=== PATIENT | female | born 1955 | race Caucasian/White ===

== ENCOUNTER 2016-06-05 16:51 | Emergency (ER) | payer MEDICAID ==
[~2016-06-05] VITALS: Ht 157.5 cm; Wt 68.4 kg
[~2016-06-05 16:51] MED LIST: ALBU8.5H5 INH; ASPI-650 PO; AZIT500T4 PO; BUDE10.2 INH; BUPR-173 PO; GUAI5SYR PO; LEVO750T26 PO; METR500T PO; MIRT15TA4 PO; NICO1PAT4 TD; OMEP-110 PO; PRED10TA14 PO; PRED1TAB PO; PRED20TA PO; PRED5TAB PO; TIOT18CA INH; VENL37.52 PO
[2016-06-05 17:19] LABS: HEMOGLOBIN 11.9 g/dL (11.7-16.4)
[2016-06-05] MEDS ORDERED: SODIUM CHLORIDE 0.9% 1,000ML IVBOLUS ONE (17:30)
[2016-06-05] MEDS ORDERED: PLEASE ENTER HEIGHT AND WEIGHT MC SCH (17:30)
[2016-06-05 17:38] LABS: ASPARTATE AMINO TRANSFERASE 32 U/L (15-37); BLOOD UREA NITROGEN 20 mg/dL (7-18)
[2016-06-05] MEDS ORDERED: ZIPRASIDONE 20 MG INJ IM ONE ×2 (17:39→18:00)
[2016-06-05 17:47] LABS: IS PT STATUS REG ER OR PRE ER? YES
[2016-06-05 18:22] LABS: DAU SCREEN DISCLAIMER
[2016-06-05 18:23] LABS: ACETAMINOPHEN < 2 mcg/mL (10-30)
[2016-06-06 03:14] VITALS: BP 104/58
== END 2016-06-06 03:35 | disposition home or self-care (01) ==
LOC: ED 17:02
DX: J44.1 Chronic obstructive pulmonary disease with (acute) exacerbation (principal); F15.129 Other stimulant abuse with intoxication, unspecified; F41.9 Anxiety disorder, unspecified; F31.9 Bipolar disorder, unspecified; Z99.81 Dependence on supplemental oxygen; Z87.891 Personal history of nicotine dependence; Z88.1 Allergy status to other antibiotic agents
CPT/HCPCS: 36415; 71010; 80053; 80307; 80329; 81001; 83880; 84484; 85025; 87077; 87086; 87186; 93005; 96360; 96372; 99285; J3486; J7030; G0480

== ENCOUNTER 2016-10-13 00:18 | Inpatient (IN) | payer MEDICAID ==
[~2016-10-13] VITALS: Ht 165.1 cm; Wt 72.0 kg
[~2016-10-13 00:18] MED LIST changes: -AZIT500T4 PO; +AZIT500T77 PO
[2016-10-13] MEDS ORDERED: methylPREDNISolone SOD SUCC 125 MG/2 ML ONE (00:24)
[2016-10-13] MEDS ORDERED: MAGNESIUM SULFATE PMX 2GM/50ML 50 ML IVPB ONE (00:30)
[2016-10-13] MEDS ORDERED: methylPREDNISolone SOD SUCC 125 MG/2 ML IVP ONE (00:30)
[2016-10-13] MEDS ORDERED: LORazepam 2 MG/ML, 1ML IVP ONE (00:30)
[2016-10-13] MEDS ORDERED: SODIUM CHLORIDE 0.9% 1,000ML IVBOLUS ONE ×3 (00:30→15:00)
[2016-10-13] MEDS ORDERED: SODIUM CHLORIDE FLUSH 10ML SYR IVF ONE (00:30)
[2016-10-13] MEDS ORDERED: ONDANSETRON 2MG/ML, 2ML IVP ONE (00:30)
[2016-10-13] MEDS ORDERED: IPRATROPIUM 0.5 MG/2.5 ML INHA NPPB SCH (00:30)
[2016-10-13] MEDS ORDERED: ALBUTEROL 0.5%, 20ML NPPB SCH (00:30)
[2016-10-13] MEDS ORDERED: ALBUTEROL/IPRATROPIUM 2.5MG/0.5MG, 3 ML ONE ×2 (00:33→06:42)
[2016-10-13 00:47] LABS: ABG COLLECTION SITE RIGHT RADIAL; COLLATERAL CIRCULATION TESTING NORMAL
[2016-10-13 00:50] LABS: HEMATOCRIT 41.9 % (34.6-47.8); HEMOGLOBIN 13.4 g/dL (11.7-16.4); WHITE BLOOD COUNT 6.8 x10^3/uL (3.4-10)
[2016-10-13 01:02] LABS: ASPARTATE AMINO TRANSFERASE 42 U/L (15-37); BLOOD UREA NITROGEN 16 mg/dL (7-18)
[2016-10-13 01:07] LABS: IS PT STATUS REG ER OR PRE ER? YES
[2016-10-13] MEDS ORDERED: FENTANYL PF 2,500 MCG in SODIUM CHLORIDE 0.9% 200 ML IV PRN ×2 (01:30→14:00)
[2016-10-13] MEDS ORDERED: PROPOFOL 100 ML IV PRN ×3 (01:30→17:00)
[2016-10-13] MEDS ORDERED: FENTANYL PF 250 MCG in DEXTROSE 5% 19.975 ML, HEPARIN 0.025 ML IV PRN (01:30)
[2016-10-13] MEDS ORDERED: LEVOFLOXACIN/PMX 750MG/150ML 150 ML IV ONE (01:30)
[2016-10-13 01:34] LABS: ABG COLLECTION SITE LEFT RADIAL; COLLATERAL CIRCULATION TESTING NORMAL
[2016-10-13] MEDS ORDERED: LEVOFLOXACIN/PMX 750MG/150ML 150 ML ONE (01:34)
[2016-10-13 03:17] LABS: ABG COLLECTION SITE RIGHT RADIAL; COLLATERAL CIRCULATION TESTING NORMAL
[2016-10-13] MEDS ORDERED: PROPOFOL 0 ML IV ONE (03:42)
[2016-10-13] MEDS ORDERED: PROPOFOL 10 MG/ML, 20ML ONE (03:42)
[2016-10-13] MEDS: NS + 20MEQ KCL 1,000 ML IV SCH ×2 (04:48→14:00)
[2016-10-13] MEDS ORDERED: ENOXAPARIN 40 MG/0.4 ML SQ SCH (05:00)
[2016-10-13] MEDS ORDERED: ACETAMINOPHEN 325 MG TABLET PO PRN ×2 (05:00→17:00)
[2016-10-13] MEDS ORDERED: ONDANSETRON 2MG/ML, 2ML IVPush PRN ×2 (05:00→17:00)
[2016-10-13] MEDS ORDERED: ENALAPRILAT 1.25 MG/ML, 2ML IVPush PRN (05:00)
[2016-10-13] MEDS: LEVOFLOXACIN/PMX 750MG/150ML 150 ML IV SCH (05:00)
[2016-10-13] MEDS ORDERED: methylPREDNISolone SOD SUCC 40 MG/ML IVPush SCH (05:00)
[2016-10-13] MEDS ORDERED: NS + 20MEQ KCL 1,000 ML IV ONE (05:22)
[2016-10-13] MEDS ORDERED: ENOXAPARIN 40 MG/0.4 ML ONE (05:32)
[2016-10-13] MEDS ORDERED: ASPIRIN 325 MG TABLET EC PO SCH (06:00)
[2016-10-13] MEDS: ALBUTEROL/IPRATROPIUM 2.5MG/0.5MG, 3 ML NPPB SCH ×2 (06:47→10:05)
[2016-10-13] MEDS ORDERED: methylPREDNISolone SOD SUCC 40 MG/ML ONE (07:35)
[2016-10-13] MEDS ORDERED: ETOMIDATE 20 MG/10 ML ONE (08:00)
[2016-10-13] MEDS ORDERED: MIDAZOLAM 1 MG/ML, 5ML ONE (08:00)
[2016-10-13] MEDS ORDERED: PROPOFOL 10 MG/ML, 100ML IV ONE (08:00)
[2016-10-13] MEDS ORDERED: SUCCINYLCHOLINE 20 MG/ML, 10ML ONE (08:00)
[2016-10-13] MEDS ORDERED: FAMOTIDINE 20 MG/2 ML IVPush SCH (09:00)
[2016-10-13] MEDS: BUPROPION SR 100 MG TABLET PO SCH (09:00)
[2016-10-13] MEDS: VENLAFAXINE XR 37.5MG CAP.ER.24H PO SCH (09:00)
[2016-10-13] MEDS ORDERED: FAMOTIDINE 20 MG/2 ML ONE (09:02)
[2016-10-13] MEDS ORDERED: PROPOFOL 100 ML IV ONE (09:52)
[2016-10-13] MEDS ORDERED: BISACODYL 10 MG SUPP PR PRN ×2 (11:00→17:00)
[2016-10-13] MEDS ORDERED: ALBUTEROL/IPRATROPIUM 2.5MG/0.5MG, 3 ML INLINE SCH (11:00)
[2016-10-13] MEDS ORDERED: PHARMACY MAY ADJ FOR RENAL FX MC SCH (11:00)
[2016-10-13] MEDS ORDERED: LIDOCAINE-MPF 1%, 2ML ENDO PRN ×2 (11:00→17:00)
[2016-10-13] MEDS ORDERED: SENNOSIDES 8.8 MG/5 ML ORAL SOL NG PRN (11:00)
[2016-10-13] MEDS ORDERED: SENNA/DOCUSATE TABLET NG PRN (11:00)
[2016-10-13] MEDS ORDERED: FENTANYL PF 100 MCG/2ML IVPush PRN ×2 (11:00→17:00)
[2016-10-13] MEDS ORDERED: LACTULOSE 20 GM/30 ML UDC NG PRN ×2 (11:00→17:00)
[2016-10-13 11:23] LABS: DAU SCREEN DISCLAIMER
[2016-10-13] MEDS: ENOXAPARIN 40 MG/0.4 ML SQ SCH (12:07)
[2016-10-13] MEDS: FAMOTIDINE 20 MG/2 ML IV SCH ×2 (12:07→22:11)
[2016-10-13 13:29] VITALS: BP 96/58
[2016-10-13] MEDS: methylPREDNISolone SOD SUCC 125 MG/2 ML IVPush SCH ×2 (17:07→22:11)
[2016-10-13] MEDS ORDERED: ENALAPRILAT 1.25 MG/ML, 2ML IV PRN (19:30)
[2016-10-13] MEDS ORDERED: hydrALAzine 20 MG/ML, 1ML IV PRN (19:30)
[2016-10-13] MEDS: LORazepam 2 MG/ML, 1ML IVPush PRN (19:50)
[2016-10-13] MEDS: MIRTAZAPINE 15 MG TABLET PO SCH (22:11)
[2016-10-14 04:28] LABS: ABG COLLECTION SITE LEFT BRACHIAL
[2016-10-14] MEDS ORDERED: ALBUTEROL/IPRATROPIUM 2.5MG/0.5MG, 3 ML ONE (04:41)
[2016-10-14 04:43] LABS: BLOOD UREA NITROGEN 10 mg/dL (7-18)
[2016-10-14 04:45] LABS: HEMATOCRIT 40.2 % (34.6-47.8)
[2016-10-14 04:47] LABS: ASPARTATE AMINO TRANSFERASE 26 U/L (15-37)
[2016-10-14] MEDS: methylPREDNISolone SOD SUCC 125 MG/2 ML IVPush SCH ×4 (05:00→23:40)
[2016-10-14] MEDS: LEVOFLOXACIN/PMX 750MG/150ML 150 ML IV SCH (05:06)
[2016-10-14] MEDS ORDERED: ALBUTEROL/IPRATROPIUM 2.5MG/0.5MG, 3 ML NPPB ONE (05:30)
[2016-10-14 05:32] VITALS: BP 152/82
[2016-10-14] MEDS ORDERED: ASPIRIN 81 MG TABLET EC PO SCH ×2 (06:00)
[2016-10-14 06:15] LABS: ABG COLLECTION SITE RIGHT RADIAL; COLLATERAL CIRCULATION TESTING NORMAL
[2016-10-14] MEDS: BUPROPION SR 100 MG TABLET PO SCH (08:21)
[2016-10-14] MEDS: VENLAFAXINE XR 37.5MG CAP.ER.24H PO SCH (08:21)
[2016-10-14] MEDS: MULTIVITAMIN 1 TABLET PO SCH (10:33)
[2016-10-14] MEDS: THIAMINE 100MG TABLET PO SCH (10:34)
[2016-10-14] MEDS: QUETIAPINE 25MG TABLET PO SCH ×2 (10:34→20:08)
[2016-10-14] MEDS: CEFTRIAXONE PMX 1GM/50ML 50 ML IV SCH (10:34)
[2016-10-14] MEDS: FOLIC ACID 1 MG TABLET PO SCH (10:34)
[2016-10-14] MEDS: FAMOTIDINE 20 MG/2 ML IV SCH ×2 (10:36→23:40)
[2016-10-14] MEDS: ENOXAPARIN 40 MG/0.4 ML SQ SCH (11:19)
[2016-10-14] MEDS ORDERED: ALBUTEROL/IPRATROPIUM 2.5MG/0.5MG, 3 ML NPPB PRN (11:30)
[2016-10-14] MEDS: ALBUTEROL/IPRATROPIUM 2.5MG/0.5MG, 3 ML NPPB SCH ×2 (13:40→20:00)
[2016-10-14] MEDS: MIRTAZAPINE 15 MG TABLET PO SCH (20:07)
[2016-10-15 04:10] VITALS: BP 156/84
[2016-10-15 04:19] LABS: HEMATOCRIT 40.1 % (34.6-47.8); HEMOGLOBIN 12.8 g/dL (11.7-16.4); WHITE BLOOD COUNT 18.5 x10^3/uL (3.4-10)
[2016-10-15 04:31] LABS: BLOOD UREA NITROGEN 18 mg/dL (7-18)
[2016-10-15 04:59] LABS: ABG COLLECTION SITE LEFT RADIAL; COLLATERAL CIRCULATION TESTING NORMAL
[2016-10-15] MEDS: methylPREDNISolone SOD SUCC 125 MG/2 ML IVPush SCH ×3 (05:22→17:55)
[2016-10-15] MEDS: ASPIRIN 81 MG TABLET EC PO SCH (05:23)
[2016-10-15] MEDS: ALBUTEROL/IPRATROPIUM 2.5MG/0.5MG, 3 ML NPPB SCH ×4 (06:55→20:11)
[2016-10-15] MEDS: VENLAFAXINE XR 37.5MG CAP.ER.24H PO SCH (08:03)
[2016-10-15] MEDS: BUPROPION SR 100 MG TABLET PO SCH (08:03)
[2016-10-15] MEDS: MULTIVITAMIN 1 TABLET PO SCH (08:04)
[2016-10-15] MEDS: QUETIAPINE 25MG TABLET PO SCH ×2 (08:04→21:50)
[2016-10-15] MEDS: THIAMINE 100MG TABLET PO SCH (08:04)
[2016-10-15] MEDS: FOLIC ACID 1 MG TABLET PO SCH (08:05)
[2016-10-15 10:09] VITALS: BP 124/66
[2016-10-15] MEDS: CEFTRIAXONE PMX 1GM/50ML 50 ML IV SCH (10:21)
[2016-10-15] MEDS ORDERED: ALBUTEROL/IPRATROPIUM 2.5MG/0.5MG, 3 ML ONE ×2 (10:22→13:45)
[2016-10-15] MEDS: ENOXAPARIN 40 MG/0.4 ML SQ SCH (11:44)
[2016-10-15] MEDS: FAMOTIDINE 20 MG/2 ML IV SCH (11:44)
[2016-10-15 15:15] VITALS: BP 129/74
[2016-10-15 19:00] VITALS: BP 152/76
[2016-10-15] MEDS: LORazepam 2 MG/ML, 1ML IVPush PRN (19:31)
[2016-10-15] MEDS: MIRTAZAPINE 15 MG TABLET PO SCH (21:50)
[2016-10-16] MEDS: FAMOTIDINE 20 MG/2 ML IV SCH ×2 (00:12→11:59)
[2016-10-16] MEDS: methylPREDNISolone SOD SUCC 125 MG/2 ML IVPush SCH ×4 (00:12→18:37)
[2016-10-16 02:20] VITALS: BP 150/90
[2016-10-16 05:53] LABS: ABG COLLECTION SITE LEFT BRACHIAL
[2016-10-16 05:55] LABS: HEMATOCRIT 39.8 % (34.6-47.8); WHITE BLOOD COUNT 13.6 x10^3/uL (3.4-10)
[2016-10-16 06:05] LABS: BLOOD UREA NITROGEN 19 mg/dL (7-18)
[2016-10-16] MEDS: ASPIRIN 81 MG TABLET EC PO SCH (06:24)
[2016-10-16] MEDS ORDERED: ALBUTEROL/IPRATROPIUM 2.5MG/0.5MG, 3 ML ONE ×2 (06:36→10:28)
[2016-10-16 07:10] VITALS: BP 155/88
[2016-10-16] MEDS: ALBUTEROL/IPRATROPIUM 2.5MG/0.5MG, 3 ML NPPB SCH ×4 (07:32→20:00)
[2016-10-16] MEDS: BUPROPION SR 100 MG TABLET PO SCH (10:17)
[2016-10-16] MEDS: VENLAFAXINE XR 37.5MG CAP.ER.24H PO SCH (10:17)
[2016-10-16] MEDS: FOLIC ACID 1 MG TABLET PO SCH (10:17)
[2016-10-16] MEDS: THIAMINE 100MG TABLET PO SCH (10:17)
[2016-10-16] MEDS: MULTIVITAMIN 1 TABLET PO SCH (10:17)
[2016-10-16] MEDS: QUETIAPINE 25MG TABLET PO SCH ×2 (10:17→22:16)
[2016-10-16] MEDS: CEFTRIAXONE PMX 1GM/50ML 50 ML IV SCH (10:18)
[2016-10-16] MEDS ORDERED: POTASSIUM PHOS 4.4 MEQ/ML IV ONE (11:00)
[2016-10-16] MEDS ORDERED: POTASSIUM PHOSPHATE 22 MEQ in SODIUM CHLORIDE 0.9% 250 ML IV ONE (11:30)
[2016-10-16] MEDS: LORazepam 2 MG/ML, 1ML IVPush PRN ×2 (11:57→19:27)
[2016-10-16] MEDS: ENOXAPARIN 40 MG/0.4 ML SQ SCH (13:11)
[2016-10-16 19:41] VITALS: BP 154/84
[2016-10-16] MEDS ORDERED: LORazepam 2 MG/ML, 1ML IVPush ONE (20:30)
[2016-10-16] MEDS: MIRTAZAPINE 15 MG TABLET PO SCH (22:16)
[2016-10-16] MEDS: FAMOTIDINE 20 MG TABLET PO SCH (22:44)
[2016-10-17] MEDS: methylPREDNISolone SOD SUCC 125 MG/2 ML IVPush SCH ×3 (00:37→13:02)
[2016-10-17 02:00] VITALS: BP 154/79
[2016-10-17] MEDS: ASPIRIN 81 MG TABLET EC PO SCH (06:18)
[2016-10-17 07:29] VITALS: BP 130/68
[2016-10-17 07:42] LABS: HEMATOCRIT 40.4 % (34.6-47.8); WHITE BLOOD COUNT 15.3 x10^3/uL (3.4-10)
[2016-10-17 07:45] LABS: ABG COLLECTION SITE LEFT BRACHIAL; COLLATERAL CIRCULATION TESTING NORMAL
[2016-10-17 07:53] LABS: BLOOD UREA NITROGEN 24 mg/dL (7-18)
[2016-10-17] MEDS: THIAMINE 100MG TABLET PO SCH (08:04)
[2016-10-17] MEDS: FAMOTIDINE 20 MG TABLET PO SCH (08:04)
[2016-10-17] MEDS: QUETIAPINE 25MG TABLET PO SCH (08:04)
[2016-10-17] MEDS: MULTIVITAMIN 1 TABLET PO SCH (08:04)
[2016-10-17] MEDS: VENLAFAXINE XR 37.5MG CAP.ER.24H PO SCH (08:05)
[2016-10-17] MEDS: FOLIC ACID 1 MG TABLET PO SCH (08:05)
[2016-10-17] MEDS: BUPROPION SR 100 MG TABLET PO SCH (08:05)
[2016-10-17] MEDS: ALBUTEROL/IPRATROPIUM 2.5MG/0.5MG, 3 ML NPPB SCH ×3 (08:20→15:05)
[2016-10-17] MEDS: CEFTRIAXONE PMX 1GM/50ML 50 ML IV SCH (10:36)
[2016-10-17] MEDS ORDERED: PRED5TAB PO (11:21)
[2016-10-17] MEDS ORDERED: AMOX1TAB64 PO (11:21)
[2016-10-17] MEDS: LORazepam 2 MG/ML, 1ML IVPush PRN ×2 (12:43→17:36)
[2016-10-17] MEDS: ENOXAPARIN 40 MG/0.4 ML SQ SCH (13:02)
[2016-10-17 13:40] VITALS: BP 134/73
== END 2016-10-17 18:39 | disposition home or self-care (01) | DRG 208 ==
LOC: ED 02:40 → EDIP 03:11 → CCU 10:12 → 4WST 10-15 09:54
PROVIDERS: ADMIT Internal Medicine; ATTEND Family Medicine
PROC: 0BH17EZ Insertion of Endotracheal Airway into Trachea, Via Natural or Artificial Opening (ICD-10-PCS; principal; 2016-10-13)
PROC: 5A1935Z Respiratory Ventilation, Less than 24 Consecutive Hours (ICD-10-PCS; 2016-10-13)
DX: J96.21 Acute and chronic respiratory failure with hypoxia (principal); G93.40 Encephalopathy, unspecified; Z99.11 Dependence on respirator [ventilator] status; E44.0 Moderate protein-calorie malnutrition; J44.1 Chronic obstructive pulmonary disease with (acute) exacerbation; E44.1 Mild protein-calorie malnutrition; F17.200 Nicotine dependence, unspecified, uncomplicated; F11.10 Opioid abuse, uncomplicated; I48.91 Unspecified atrial fibrillation; F31.9 Bipolar disorder, unspecified; F15.10 Other stimulant abuse, uncomplicated; F10.10 Alcohol abuse, uncomplicated; F41.9 Anxiety disorder, unspecified; D72.829 Elevated white blood cell count, unspecified; M19.90 Unspecified osteoarthritis, unspecified site; T38.0X5A Adverse effect of glucocorticoids and synthetic analogues, initial encounter; J96.22 Acute and chronic respiratory failure with hypercapnia; Z86.72 Personal history of thrombophlebitis; Z91.14 Patient's other noncompliance with medication regimen; Z91.19 Patient's noncompliance with other medical treatment and regimen; Z99.81 Dependence on supplemental oxygen; Z59.0 Homelessness; Y92.89 Other specified places as the place of occurrence of the external cause; Z68.26 Body mass index [BMI] 26.0-26.9, adult; Z88.1 Allergy status to other antibiotic agents; Z88.8 Allergy status to other drugs, medicaments and biological substances
CPT/HCPCS: 31500; 36415; 36600; 71010; 80048; 80053; 80307; 82803; 83735; 83880; 84100; 84478; 84484; 85025; 87040; 87081; 93005; 94002; 94150; 94640; 94660; 96365; 96368; 96372; 96375; J0696; J1650; J1956; J2250; J2704; J3010; J3480; J7620; J7644; J0330; J2060; J2920; J2930; J3475; J7030; J7050; S0028

== ENCOUNTER 2016-12-20 04:37 | Inpatient (IN) | payer MEDICAID ==
[~2016-12-20] VITALS: Ht 165.1 cm; Wt 79.7 kg
[~2016-12-20 04:37] MED LIST changes: +AMOX1TAB64 PO; +AZIT500T5 PO; -AZIT500T77 PO; +NICO-486 TD; -NICO1PAT4 TD
[2016-12-20] MEDS ORDERED: ALBUTEROL/IPRATROPIUM 2.5MG/0.5MG, 3 ML ONE (04:43)
[2016-12-20] MEDS ORDERED: methylPREDNISolone SOD SUCC 125 MG/2 ML IVP ONE (05:00)
[2016-12-20] MEDS ORDERED: SODIUM CHLORIDE FLUSH 10ML SYR IVF ONE (05:00)
[2016-12-20] MEDS ORDERED: ALBUTEROL/IPRATROPIUM 2.5MG/0.5MG, 3 ML NPPB ONE (05:00)
[2016-12-20] MEDS ORDERED: methylPREDNISolone SOD SUCC 125 MG/2 ML ONE (05:08)
[2016-12-20] MEDS ORDERED: CEFTRIAXONE PMX 1GM/50ML 50 ML ONE (05:13)
[2016-12-20] MEDS: CEFTRIAXONE PMX 1GM/50ML 50 ML IVPB ONE ×2 (05:16→06:02)
[2016-12-20 05:17] LABS: HEMOGLOBIN 12.6 g/dL (11.7-16.4); WHITE BLOOD COUNT 16.4 x10^3/uL (3.4-10)
[2016-12-20 05:28] LABS: BLOOD UREA NITROGEN 20 mg/dL (7-18)
[2016-12-20] MEDS ORDERED: SODIUM CHLORIDE 0.9% 1,000ML IVBOLUS ONE (05:30)
[2016-12-20] MEDS ORDERED: ALPR0.25 PO (06:04)
[2016-12-20] MEDS ORDERED: LORA0.5T PO (06:04)
[2016-12-20] MEDS ORDERED: SODIUM CHLORIDE 0.9% 1,000 ML IV ONE (06:35)
[2016-12-20] MEDS ORDERED: LORazepam 1MG TABLET ONE (06:41)
[2016-12-20] MEDS ORDERED: LORazepam 2 MG/ML, 1ML ONE (06:45)
[2016-12-20 06:50] LABS: ABG COLLECTION SITE RIGHT RADIAL
[2016-12-20 06:51] LABS: COLLATERAL CIRCULATION TESTING NORMAL
[2016-12-20] MEDS ORDERED: LORazepam 2 MG/ML, 1ML IVPush ONE (07:00)
[2016-12-20] MEDS ORDERED: ONDANSETRON 2MG/ML, 2ML IVPush PRN ×2 (07:00→08:00)
[2016-12-20 07:03] LABS: IS PT STATUS REG ER OR PRE ER? YES
[2016-12-20] MEDS ORDERED: SODIUM CHLORIDE 0.9% 1,000 ML IV SCH (07:57)
[2016-12-20] MEDS ORDERED: CEFTRIAXONE 1,000 MG in SODIUM CHLORIDE 0.9% 50 ML IV SCH (08:00)
[2016-12-20] MEDS ORDERED: ACETAMINOPHEN 325 MG TABLET PO PRN (08:00)
[2016-12-20] MEDS ORDERED: GUAIFENESIN/DM 200-20MG, 10ML UDC PO PRN (08:00)
[2016-12-20] MEDS ORDERED: POLYETHYLENE GLYCOL 17 GM PACKET PO PRN (08:00)
[2016-12-20] MEDS ORDERED: morphine SULFATE 10 MG/ML, 1ML IVPush PRN (08:00)
[2016-12-20] MEDS: methylPREDNISolone SOD SUCC 125 MG/2 ML IVPush SCH ×3 (08:00→23:57)
[2016-12-20] MEDS ORDERED: LORazepam 0.5MG TABLET PO SCH ×2 (08:00→15:30)
[2016-12-20] MEDS ORDERED: NICOTINE 14MG/24 HR PATCH.TD24 ONE (08:29)
[2016-12-20] MEDS ORDERED: ENOXAPARIN 40 MG/0.4 ML ONE (08:30)
[2016-12-20] MEDS: NICOTINE 14MG/24 HR PATCH.TD24 TD SCH (08:34)
[2016-12-20] MEDS: ENOXAPARIN 40 MG/0.4 ML SQ SCH (08:34)
[2016-12-20] MEDS: TIOTROPIUM BROMIDE INH SCH (09:00)
[2016-12-20] MEDS ORDERED: ALBUTEROL/IPRATROPIUM 2.5MG/0.5MG, 3 ML NPPB PRN (09:00)
[2016-12-20] MEDS ORDERED: DOCUSATE 100 MG CAPSULE PO PRN (09:00)
[2016-12-20] MEDS: ALBUTEROL/IPRATROPIUM 2.5MG/0.5MG, 3 ML NPPB SCH ×3 (09:18→20:21)
[2016-12-20 10:14] VITALS: BP 143/90
[2016-12-20] MEDS: FORMOTEROL INH SCH (10:17)
[2016-12-20] MEDS: BUDESONIDE INH SCH (10:17)
[2016-12-20] MEDS: LORAZEPAM MC SCH ×2 (10:18→15:08)
[2016-12-20] MEDS: AZITHROMYCIN 500 MG in SODIUM CHLORIDE 0.9% 250 ML IV SCH (10:34)
[2016-12-20 13:45] VITALS: BP 118/64
[2016-12-20] MEDS: BUPROPION SR 100 MG TABLET PO SCH (14:42)
[2016-12-20] MEDS: VENLAFAXINE XR 37.5MG CAP.ER.24H PO SCH (14:42)
[2016-12-20] MEDS ORDERED: LORAZEPAM MC SCH (15:30)
[2016-12-20 18:56] VITALS: BP 122/57
[2016-12-20] MEDS: MIRTAZAPINE 15 MG TABLET PO SCH (19:51)
[2016-12-20] MEDS: SENNA/DOCUSATE TABLET PO SCH (19:52)
[2016-12-20] MEDS: LORazepam 0.5MG TABLET PO PRN (20:42)
[2016-12-20] MEDS ORDERED: LORazepam 0.5MG TABLET PO PRN (21:30)
[2016-12-21 01:08] VITALS: BP 128/69
[2016-12-21] MEDS: ALBUTEROL/IPRATROPIUM 2.5MG/0.5MG, 3 ML NPPB SCH ×4 (03:00→21:00)
[2016-12-21] MEDS: LORazepam 0.5MG TABLET PO PRN ×4 (03:01→21:08)
[2016-12-21] MEDS ORDERED: CEFTRIAXONE 1,000 MG in SODIUM CHLORIDE 0.9% 50 ML IV SCH (06:00)
[2016-12-21] MEDS: CEFTRIAXONE PMX 1GM/50ML 50 ML IV SCH (06:03)
[2016-12-21 06:07] LABS: HEMATOCRIT 36.2 % (34.6-47.8); HEMOGLOBIN 11.5 g/dL (11.7-16.4); WHITE BLOOD COUNT 20.5 x10^3/uL (3.4-10)
[2016-12-21 06:15] LABS: BLOOD UREA NITROGEN 19 mg/dL (7-18)
[2016-12-21 07:05] VITALS: BP 149/74
[2016-12-21] MEDS: ASPIRIN 81 MG TABLET EC PO SCH (08:00)
[2016-12-21] MEDS: TIOTROPIUM BROMIDE INH SCH (09:00)
[2016-12-21] MEDS: VENLAFAXINE XR 37.5MG CAP.ER.24H PO SCH (09:00)
[2016-12-21] MEDS: FORMOTEROL INH SCH (09:00)
[2016-12-21] MEDS: BUDESONIDE INH SCH (09:00)
[2016-12-21] MEDS: NICOTINE 14MG/24 HR PATCH.TD24 TD SCH (09:44)
[2016-12-21] MEDS: methylPREDNISolone SOD SUCC 125 MG/2 ML IVPush SCH ×2 (09:44→15:14)
[2016-12-21] MEDS: ENOXAPARIN 40 MG/0.4 ML SQ SCH (09:44)
[2016-12-21] MEDS: BUPROPION SR 100 MG TABLET PO SCH (09:44)
[2016-12-21] MEDS: SENNA/DOCUSATE TABLET PO SCH (09:45)
[2016-12-21] MEDS: AZITHROMYCIN 500 MG in SODIUM CHLORIDE 0.9% 250 ML IV SCH (09:45)
[2016-12-21 12:58] VITALS: BP 119/70
[2016-12-21 14:00] LABS: DAU SCREEN DISCLAIMER
[2016-12-21 21:05] VITALS: BP 133/75
[2016-12-21] MEDS: MIRTAZAPINE 15 MG TABLET PO SCH (21:08)
[2016-12-22 01:20] VITALS: BP 131/68
[2016-12-22] MEDS: HYDROcodone/APAP 5/325 TABLET PO PRN ×2 (01:21→19:47)
[2016-12-22] MEDS: methylPREDNISolone SOD SUCC 125 MG/2 ML IVPush SCH ×3 (01:21→16:45)
[2016-12-22] MEDS: LORazepam 0.5MG TABLET PO PRN ×2 (02:45→09:06)
[2016-12-22] MEDS: ALBUTEROL/IPRATROPIUM 2.5MG/0.5MG, 3 ML NPPB SCH ×4 (03:16→20:19)
[2016-12-22] MEDS: CEFTRIAXONE PMX 1GM/50ML 50 ML IV SCH (06:22)
[2016-12-22 08:29] VITALS: BP 133/60
[2016-12-22] MEDS: VENLAFAXINE XR 37.5MG CAP.ER.24H PO SCH (09:00)
[2016-12-22] MEDS: TIOTROPIUM BROMIDE INH SCH (09:00)
[2016-12-22] MEDS: FORMOTEROL INH SCH (09:00)
[2016-12-22] MEDS: BUDESONIDE INH SCH (09:00)
[2016-12-22] MEDS: AZITHROMYCIN 500 MG in SODIUM CHLORIDE 0.9% 250 ML IV SCH (09:05)
[2016-12-22] MEDS: ASPIRIN 81 MG TABLET EC PO SCH (09:06)
[2016-12-22] MEDS: SENNA/DOCUSATE TABLET PO SCH (09:06)
[2016-12-22] MEDS: ENOXAPARIN 40 MG/0.4 ML SQ SCH (09:06)
[2016-12-22] MEDS: NICOTINE 14MG/24 HR PATCH.TD24 TD SCH (09:06)
[2016-12-22] MEDS: BUPROPION SR 100 MG TABLET PO SCH (09:06)
[2016-12-22] MEDS ORDERED: FUROSEMIDE 20 MG/2 ML IV ONE (09:30)
[2016-12-22 15:44] VITALS: BP 149/81
[2016-12-22] MEDS ORDERED: DOCUSATE 100 MG CAPSULE PO PRN (20:30)
[2016-12-22] MEDS ORDERED: ACETAMINOPHEN 325 MG TABLET PO PRN (20:30)
[2016-12-22] MEDS ORDERED: ONDANSETRON 2MG/ML, 2ML IVPush PRN (20:30)
[2016-12-22] MEDS ORDERED: POLYETHYLENE GLYCOL 17 GM PACKET PO PRN (20:30)
[2016-12-22] MEDS: MIRTAZAPINE 15 MG TABLET PO SCH (21:00)
[2016-12-22 21:12] VITALS: BP 134/74
[2016-12-23] MEDS: methylPREDNISolone SOD SUCC 125 MG/2 ML IVPush SCH ×4 (01:33→21:50)
[2016-12-23 01:44] VITALS: BP 165/90
[2016-12-23 02:30] VITALS: BP 130/67
[2016-12-23] MEDS: ALBUTEROL/IPRATROPIUM 2.5MG/0.5MG, 3 ML NPPB SCH ×4 (02:43→19:17)
[2016-12-23] MEDS: CEFTRIAXONE PMX 1GM/50ML 50 ML IV SCH (05:12)
[2016-12-23] MEDS: HYDROcodone/APAP 5/325 TABLET PO PRN ×2 (06:01→11:02)
[2016-12-23] MEDS ORDERED: ALBUTEROL/IPRATROPIUM 2.5MG/0.5MG, 3 ML NPPB SCH (07:00)
[2016-12-23 08:46] VITALS: BP 148/70
[2016-12-23] MEDS: ASPIRIN 81 MG TABLET EC PO SCH (08:48)
[2016-12-23] MEDS: VENLAFAXINE XR 37.5MG CAP.ER.24H PO SCH (08:49)
[2016-12-23] MEDS: BUDESONIDE INH SCH (08:49)
[2016-12-23] MEDS: NICOTINE 14MG/24 HR PATCH.TD24 TD SCH (08:49)
[2016-12-23] MEDS: FORMOTEROL INH SCH (08:49)
[2016-12-23] MEDS: ENOXAPARIN 40 MG/0.4 ML SQ SCH (08:49)
[2016-12-23] MEDS: BUPROPION SR 100 MG TABLET PO SCH (08:49)
[2016-12-23] MEDS: TIOTROPIUM BROMIDE INH SCH (08:49)
[2016-12-23] MEDS: SENNA/DOCUSATE TABLET PO SCH (08:50)
[2016-12-23] MEDS: AZITHROMYCIN 500 MG in SODIUM CHLORIDE 0.9% 250 ML IV SCH (10:37)
[2016-12-23] MEDS ORDERED: FUROSEMIDE 20 MG/2 ML IV ONE (11:00)
[2016-12-23] MEDS: FLUTICASONE/VILANTEROL 200-25MCG/INH INH SCH (11:49)
[2016-12-23 16:00] VITALS: BP_SYST 154; BP_SYST 166; BP_DIAS 73; BP_DIAS 83
[2016-12-23 18:30] VITALS: BP 151/72
[2016-12-23] MEDS: MIRTAZAPINE 15 MG TABLET PO SCH (21:49)
[2016-12-24 03:14] VITALS: BP 152/75
[2016-12-24] MEDS: methylPREDNISolone SOD SUCC 125 MG/2 ML IVPush SCH ×4 (03:24→20:15)
[2016-12-24] MEDS: CEFTRIAXONE PMX 1GM/50ML 50 ML IV SCH (05:11)
[2016-12-24] MEDS: ASPIRIN 81 MG TABLET EC PO SCH (05:12)
[2016-12-24 05:46] LABS: HEMATOCRIT 37.9 % (34.6-47.8); HEMOGLOBIN 12.4 g/dL (11.7-16.4); WHITE BLOOD COUNT 17.2 x10^3/uL (3.4-10)
[2016-12-24 05:59] LABS: BLOOD UREA NITROGEN 21 mg/dL (7-18)
[2016-12-24] MEDS: FLUTICASONE/VILANTEROL 200-25MCG/INH INH SCH (08:51)
[2016-12-24] MEDS: NICOTINE 14MG/24 HR PATCH.TD24 TD SCH (08:52)
[2016-12-24] MEDS: ENOXAPARIN 40 MG/0.4 ML SQ SCH (08:52)
[2016-12-24] MEDS: VENLAFAXINE XR 37.5MG CAP.ER.24H PO SCH (08:52)
[2016-12-24] MEDS: BUPROPION SR 100 MG TABLET PO SCH (08:52)
[2016-12-24] MEDS: SENNA/DOCUSATE TABLET PO SCH (08:53)
[2016-12-24 08:54] VITALS: BP 152/71
[2016-12-24] MEDS: ALBUTEROL/IPRATROPIUM 2.5MG/0.5MG, 3 ML NPPB SCH ×4 (09:00→20:25)
[2016-12-24] MEDS: AZITHROMYCIN 500 MG in SODIUM CHLORIDE 0.9% 250 ML IV SCH (10:14)
[2016-12-24] MEDS: HYDROcodone/APAP 5/325 TABLET PO PRN ×3 (10:35→19:36)
[2016-12-24 17:18] VITALS: BP 148/70
[2016-12-24] MEDS: PROPRANOLOL 10 MG TABLET PO SCH (17:24)
[2016-12-24] MEDS: MIRTAZAPINE 15 MG TABLET PO SCH (20:05)
[2016-12-24 20:30] VITALS: BP 167/90
[2016-12-25 02:59] VITALS: BP 149/66
[2016-12-25] MEDS: methylPREDNISolone SOD SUCC 125 MG/2 ML IVPush SCH ×4 (03:04→20:08)
[2016-12-25] MEDS: CEFTRIAXONE PMX 1GM/50ML 50 ML IV SCH (06:01)
[2016-12-25] MEDS: ASPIRIN 81 MG TABLET EC PO SCH (06:05)
[2016-12-25] MEDS: PROPRANOLOL 10 MG TABLET PO SCH ×2 (06:05→17:29)
[2016-12-25] MEDS: ALBUTEROL/IPRATROPIUM 2.5MG/0.5MG, 3 ML NPPB SCH ×4 (08:00→19:56)
[2016-12-25 08:26] VITALS: BP 149/80
[2016-12-25] MEDS: SENNA/DOCUSATE TABLET PO SCH (09:00)
[2016-12-25] MEDS: VENLAFAXINE XR 37.5MG CAP.ER.24H PO SCH (09:15)
[2016-12-25] MEDS: ENOXAPARIN 40 MG/0.4 ML SQ SCH (09:15)
[2016-12-25] MEDS: AZITHROMYCIN 500 MG in SODIUM CHLORIDE 0.9% 250 ML IV SCH (09:16)
[2016-12-25] MEDS: FLUTICASONE/VILANTEROL 200-25MCG/INH INH SCH (09:16)
[2016-12-25] MEDS: BUPROPION SR 100 MG TABLET PO SCH (09:16)
[2016-12-25 11:07] VITALS: BP 138/74
[2016-12-25] MEDS: HYDROcodone/APAP 5/325 TABLET PO PRN (13:48)
[2016-12-25 14:22] VITALS: BP 146/74
[2016-12-25 20:00] VITALS: BP 136/62
[2016-12-25] MEDS: MIRTAZAPINE 15 MG TABLET PO SCH (20:08)
[2016-12-26 02:00] VITALS: BP 158/74
[2016-12-26] MEDS: methylPREDNISolone SOD SUCC 125 MG/2 ML IVPush SCH ×4 (03:13→20:28)
[2016-12-26] MEDS: PROPRANOLOL 10 MG TABLET PO SCH (06:00)
[2016-12-26] MEDS: CEFTRIAXONE PMX 1GM/50ML 50 ML IV SCH (06:09)
[2016-12-26] MEDS: ASPIRIN 81 MG TABLET EC PO SCH (06:09)
[2016-12-26 07:27] VITALS: BP 166/83
[2016-12-26] MEDS: ALBUTEROL/IPRATROPIUM 2.5MG/0.5MG, 3 ML NPPB SCH ×4 (08:05→20:11)
[2016-12-26] MEDS ORDERED: DILTIAZEM 120 MG CAP.ER.24H PO SCH (09:00)
[2016-12-26] MEDS: SENNA/DOCUSATE TABLET PO SCH (09:00)
[2016-12-26] MEDS: FLUTICASONE/VILANTEROL 200-25MCG/INH INH SCH (09:24)
[2016-12-26] MEDS: VENLAFAXINE XR 37.5MG CAP.ER.24H PO SCH (09:25)
[2016-12-26] MEDS: BUPROPION SR 100 MG TABLET PO SCH (09:25)
[2016-12-26] MEDS: ENOXAPARIN 40 MG/0.4 ML SQ SCH (09:25)
[2016-12-26] MEDS: AZITHROMYCIN 500 MG in SODIUM CHLORIDE 0.9% 250 ML IV SCH (10:22)
[2016-12-26 13:12] VITALS: BP 148/63
[2016-12-26 19:11] VITALS: BP 153/75
[2016-12-26] MEDS: MIRTAZAPINE 15 MG TABLET PO SCH (20:28)
[2016-12-27 01:42] VITALS: BP 144/72
[2016-12-27] MEDS: methylPREDNISolone SOD SUCC 125 MG/2 ML IVPush SCH ×3 (03:04→15:00)
[2016-12-27] MEDS: ASPIRIN 81 MG TABLET EC PO SCH (05:41)
[2016-12-27] MEDS: CEFTRIAXONE PMX 1GM/50ML 50 ML IV SCH (05:42)
[2016-12-27] MEDS: ALBUTEROL/IPRATROPIUM 2.5MG/0.5MG, 3 ML NPPB SCH ×3 (06:00→14:53)
[2016-12-27 06:03] LABS: HEMATOCRIT 39.4 % (34.6-47.8); HEMOGLOBIN 12.6 g/dL (11.7-16.4); WHITE BLOOD COUNT 16.3 x10^3/uL (3.4-10)
[2016-12-27 06:10] LABS: BLOOD UREA NITROGEN 28 mg/dL (7-18)
[2016-12-27] MEDS: ENOXAPARIN 40 MG/0.4 ML SQ SCH (08:00)
[2016-12-27 08:15] VITALS: BP 158/73
[2016-12-27] MEDS: FLUTICASONE/VILANTEROL 200-25MCG/INH INH SCH (08:17)
[2016-12-27] MEDS: BUPROPION SR 100 MG TABLET PO SCH (08:19)
[2016-12-27] MEDS: SENNA/DOCUSATE TABLET PO SCH (08:19)
[2016-12-27] MEDS: VENLAFAXINE XR 37.5MG CAP.ER.24H PO SCH (08:21)
[2016-12-27] MEDS ORDERED: LOSARTAN 25MG TABLET PO SCH (09:00)
[2016-12-27] MEDS ORDERED: DILTIAZEM CD 180 MG CAP.ER.24H PO SCH (09:00)
[2016-12-27] MEDS: AZITHROMYCIN 500 MG in SODIUM CHLORIDE 0.9% 250 ML IV SCH (09:44)
[2016-12-27] MEDS ORDERED: DILT180C53 PO (14:45)
[2016-12-27] MEDS ORDERED: LOSA25TA2 PO (14:45)
[2016-12-27] MEDS ORDERED: PRED5TAB PO (14:45)
[2016-12-27] MEDS ORDERED: ERGO500017 PO (14:56)
== END 2016-12-27 16:54 | disposition hospice, home (50) | DRG 871 ==
LOC: ED 05:34 → EDIP 06:35 → 5SO 09:06 → 4EST 12-25 10:53
PROVIDERS: ADMIT Family Medicine; ATTEND Family Medicine
DX: A41.9 Sepsis, unspecified organism (principal); G93.41 Metabolic encephalopathy; J96.21 Acute and chronic respiratory failure with hypoxia; E44.0 Moderate protein-calorie malnutrition; I50.32 Chronic diastolic (congestive) heart failure; I11.0 Hypertensive heart disease with heart failure; I48.91 Unspecified atrial fibrillation; J44.0 Chronic obstructive pulmonary disease with (acute) lower respiratory infection; J44.1 Chronic obstructive pulmonary disease with (acute) exacerbation; J98.11 Atelectasis; Z99.81 Dependence on supplemental oxygen; E55.9 Vitamin D deficiency, unspecified; F15.10 Other stimulant abuse, uncomplicated; M19.90 Unspecified osteoarthritis, unspecified site; E87.6 Hypokalemia; F17.200 Nicotine dependence, unspecified, uncomplicated; F31.9 Bipolar disorder, unspecified; F41.9 Anxiety disorder, unspecified; R65.20 Severe sepsis without septic shock; Z51.5 Encounter for palliative care; Z59.0 Homelessness; Z88.1 Allergy status to other antibiotic agents; Z91.14 Patient's other noncompliance with medication regimen; Z87.01 Personal history of pneumonia (recurrent); Z98.51 Tubal ligation status; Z88.8 Allergy status to other drugs, medicaments and biological substances; Z79.82 Long term (current) use of aspirin; Z79.899 Other long term (current) drug therapy; Z68.29 Body mass index [BMI] 29.0-29.9, adult; Z71.6 Tobacco abuse counseling
CPT/HCPCS: 36415; 36600; 71010; 71020; 80048; 80307; 82040; 82306; 82607; 82803; 83605; 83735; 83880; 84145; 84484; 85025; 87040; 87081; 93005; 93306; 94640; 96361; 96365; 96366; 96372; 96375; J0456; J0696; J1650; J7620; G0479; J1940; J2060; J2930; J7030; J7050

== ENCOUNTER 2018-01-19 11:08 | Inpatient (IN) | payer MEDICAID, OTHER ==
[~2018-01-19] VITALS: Ht 165.1 cm; Wt 63.1 kg
[~2018-01-19 11:08] MED LIST changes: +ALPR0.25 PO; +DILT180C53 PO; +ERGO500017 PO; +LORA0.5T PO; +LOSA25TA2 PO
[2018-01-19] MEDS ORDERED: SODIUM CHLORIDE 0.9% 1,000 ML IV ONE (11:37)
[2018-01-19] MEDS ORDERED: POTA20TA89 PO (11:39)
[2018-01-19] MEDS ORDERED: FURO40TA6 PO (11:39)
[2018-01-19] MEDS ORDERED: MORP15TA PO (11:39)
[2018-01-19] MEDS ORDERED: SPIR50TA4 PO (11:39)
[2018-01-19] MEDS ORDERED: methylPREDNISolone SOD SUCC 125 MG/2 ML ONE (11:59)
[2018-01-19] MEDS ORDERED: LORazepam 2 MG/ML, 1ML IVPush ONE (12:00)
[2018-01-19] MEDS ORDERED: SODIUM CHLORIDE FLUSH 10ML SYR IVF ONE (12:00)
[2018-01-19] MEDS ORDERED: methylPREDNISolone SOD SUCC 125 MG/2 ML IVP ONE (12:00)
[2018-01-19] MEDS ORDERED: LORazepam 2 MG/ML, 1ML ONE (12:00)
[2018-01-19] MEDS ORDERED: ALBUTEROL/IPRATROPIUM 2.5MG/0.5MG, 3 ML ONE ×2 (12:04→18:07)
[2018-01-19 12:08] LABS: RAPID INFLUENZA A Negative (Negative); RAPID INFLUENZA B Negative (Negative)
[2018-01-19 12:31] LABS: MEAN CORPUSCULAR HEMOGLOBIN 29.5 pg (27.0-34.8); MEAN CORPUSCULAR HGB CONC 32.5 g/dL (32.4-35.8); MEAN CORPUSCULAR VOLUME 90.7 fL (80-100); MEAN PLATELET VOLUME 6.6 fL (7.4-10.4); PLATELET COUNT 291 x10^3/uL (130-400); RED BLOOD COUNT 4.16 x10^6/uL (3.82-5.3); RED CELL DISTRIBUTION WIDTH 12.2 % (9.6-15.2)
[2018-01-19 12:32] LABS: ALANINE AMINOTRANSFERASE 45 U/L (12-78); ANION GAP 10 mmol/L (5-15); CALCIUM 8.1 mg/dL (8.5-10.1); CHLORIDE 98 mmol/L (98-107); CREATININE 0.49 mg/dL (0.55-1.02)
[2018-01-19 12:48] LABS: BASOPHILS # (AUTO) 0.01 x10^3/uL (0-0.1); BASOPHILS % (AUTO) 0 % (0-1); EOSINOPHILS # (AUTO) 0.01 x10^3/uL (0-0.4); EOSINOPHILS % (AUTO) 0 % (1-7); LYMPHOCYTES # (AUTO) 1.04 x10^3/uL (1-3.4); LYMPHOCYTES % (AUTO) 5 % (22-44); MD SCAN; MONOCYTES # (AUTO) 1.22 x10^3/uL (0.2-0.8); MONOCYTES % (AUTO) 6 % (2-9); NEUTROPHILS # (AUTO) 18.71 x10^3/uL (1.8-6.8); NEUTROPHILS % (AUTO) 89 % (42-75)
[2018-01-19 12:49] LABS: ALKALINE PHOSPHATASE 52 U/L (45-117); BILIRUBIN,TOTAL 0.4 mg/dL (0.2-1.0); TOTAL PROTEIN 6.5 g/dL (6.4-8.2)
[2018-01-19] MEDS ORDERED: CEFTRIAXONE PMX 1GM/50ML 50 ML IV ONE (13:30)
[2018-01-19] MEDS ORDERED: ACETAMINOPHEN 325 MG TABLET PO PRN (14:00)
[2018-01-19] MEDS ORDERED: NICOTINE 21 MG/24 HR PATCH.TD24 TD SCH (14:00)
[2018-01-19] MEDS ORDERED: ONDANSETRON ODT 4 MG PO PRN (14:00)
[2018-01-19] MEDS ORDERED: SODIUM CHLORIDE 0.9%, 500ML IVBOLUS ONE (14:00)
[2018-01-19] MEDS ORDERED: CEFTRIAXONE PMX 1GM/50ML 50 ML ONE (14:02)
[2018-01-19] MEDS: methylPREDNISolone SOD SUCC 125 MG/2 ML IVPush SCH ×2 (14:06→22:25)
[2018-01-19] MEDS: CEFTRIAXONE PMX 1GM/50ML 50 ML IV SCH (14:10)
[2018-01-19] MEDS ORDERED: LORazepam 0.5MG TABLET PO SCH (14:30)
[2018-01-19] MEDS ORDERED: BUDESONIDE 0.5 MG/2 ML INHA NPPB SCH (15:30)
[2018-01-19] MEDS ORDERED: ALBUTEROL SULFATE 2.5 MG/3 ML NPPB SCH (15:30)
[2018-01-19 16:21] VITALS: BP 117/69
[2018-01-19] MEDS ORDERED: ATIVAN MC SCH (17:30)
[2018-01-19] MEDS: NICOTINE 7 MG/24 HR PATCH.TD24 TD SCH (17:48)
[2018-01-19] MEDS: LORazepam 0.5MG TABLET PO PRN (17:57)
[2018-01-19] MEDS: GUAIFENESIN/DM 200-20MG, 10ML UDC PO PRN (17:57)
[2018-01-19 18:53] VITALS: BP 103/57
[2018-01-19] MEDS: BUDESONIDE 0.5 MG/2 ML INHA NPPB SCH (18:55)
[2018-01-19] MEDS: ALBUTEROL/IPRATROPIUM 2.5MG/0.5MG, 3 ML NPPB SCH (18:55)
[2018-01-19] MEDS: morphine SULFATE 15 MG TAB.IR PO SCH (22:25)
[2018-01-19] MEDS: ENOXAPARIN 40 MG/0.4 ML SQ SCH (22:25)
[2018-01-19] MEDS: MIRTAZAPINE 15 MG TABLET PO SCH (22:25)
[2018-01-20 01:23] VITALS: BP 131/74
[2018-01-20] MEDS: GUAIFENESIN/DM 200-20MG, 10ML UDC PO PRN (01:39)
[2018-01-20] MEDS: ALBUTEROL/IPRATROPIUM 2.5MG/0.5MG, 3 ML NPPB SCH ×4 (02:21→19:38)
[2018-01-20 05:50] LABS: BASOPHILS % (AUTO) 0 % (0-1); EOSINOPHILS % (AUTO) 0 % (1-7); LYMPHOCYTES # (AUTO) 0.95 x10^3/uL (1-3.4); LYMPHOCYTES % (AUTO) 5 % (22-44); MD NO; MEAN CORPUSCULAR HEMOGLOBIN 30.1 pg (27.0-34.8); MEAN CORPUSCULAR HGB CONC 32.7 g/dL (32.4-35.8); MONOCYTES # (AUTO) 1.07 x10^3/uL (0.2-0.8); MONOCYTES % (AUTO) 6 % (2-9); NEUTROPHILS # (AUTO) 15.88 x10^3/uL (1.8-6.8); NEUTROPHILS % (AUTO) 89 % (42-75); PLATELET COUNT 284 x10^3/uL (130-400); RED BLOOD COUNT 4.02 x10^6/uL (3.82-5.3); RED CELL DISTRIBUTION WIDTH 12.2 % (9.6-15.2)
[2018-01-20 06:02] LABS: ALANINE AMINOTRANSFERASE 40 U/L (12-78); ALBUMIN 2.7 g/dL (3.4-5.0); ANION GAP 2 mmol/L (5-15); CHLORIDE 108 mmol/L (98-107); CREATININE 0.44 mg/dL (0.55-1.02)
[2018-01-20 06:03] LABS: ALKALINE PHOSPHATASE 47 U/L (45-117); BILIRUBIN,TOTAL 0.2 mg/dL (0.2-1.0); TOTAL PROTEIN 6.2 g/dL (6.4-8.2)
[2018-01-20] MEDS: methylPREDNISolone SOD SUCC 125 MG/2 ML IVPush SCH ×4 (06:05→23:34)
[2018-01-20 07:07] VITALS: BP 110/70
[2018-01-20] MEDS: BUDESONIDE 0.5 MG/2 ML INHA NPPB SCH ×2 (08:19→21:00)
[2018-01-20] MEDS: GUAIFENESIN ER 600 MG TABLET PO SCH ×2 (08:26→20:18)
[2018-01-20] MEDS: VENLAFAXINE XR 37.5MG CAP.ER.24H PO SCH (08:26)
[2018-01-20] MEDS: LOSARTAN 25MG TABLET PO SCH (08:26)
[2018-01-20] MEDS: morphine SULFATE 15 MG TAB.IR PO SCH ×2 (08:26→20:18)
[2018-01-20] MEDS: DILTIAZEM CD 180 MG CAP.ER.24H PO SCH (08:26)
[2018-01-20] MEDS: LORazepam 0.5MG TABLET PO PRN ×2 (12:58→16:12)
[2018-01-20 13:21] VITALS: BP 110/76
[2018-01-20] MEDS: CEFTRIAXONE PMX 1GM/50ML 50 ML IV SCH (14:39)
[2018-01-20] MEDS: NICOTINE 7 MG/24 HR PATCH.TD24 TD SCH (15:53)
[2018-01-20 19:19] VITALS: BP 104/70
[2018-01-20] MEDS: MIRTAZAPINE 15 MG TABLET PO SCH (20:18)
[2018-01-20] MEDS: ENOXAPARIN 40 MG/0.4 ML SQ SCH (20:18)
[2018-01-21] MEDS ORDERED: NITROGLYCERIN 0.4 MG BOTTLE (25 TABS) SL ONE
[2018-01-21 01:36] VITALS: BP 110/76
[2018-01-21] MEDS: ALBUTEROL/IPRATROPIUM 2.5MG/0.5MG, 3 ML NPPB SCH ×4 (02:49→20:11)
[2018-01-21 03:17] LABS: AMPHETAMINE SCREEN, URINE Negative (Negative); BARBITURATE SCREEN, URINE Negative (Negative); BENZODIAZEPINE SCREEN, URINE Negative (Negative); CANNABINOID SCREEN, URINE Negative (Negative); COCAINE SCREEN, URINE Negative (Negative); METHADONE SCREEN, URINE Negative (Negative); OPIATE SCREEN, URINE Positive (Negative)
[2018-01-21] MEDS: methylPREDNISolone SOD SUCC 125 MG/2 ML IVPush SCH ×2 (05:24→20:19)
[2018-01-21] MEDS: BUDESONIDE 0.5 MG/2 ML INHA NPPB SCH ×2 (07:32→20:11)
[2018-01-21] MEDS: morphine SULFATE 15 MG TAB.IR PO SCH ×2 (07:40→20:18)
[2018-01-21] MEDS: DILTIAZEM CD 180 MG CAP.ER.24H PO SCH (07:41)
[2018-01-21] MEDS: LOSARTAN 25MG TABLET PO SCH (07:41)
[2018-01-21] MEDS: VENLAFAXINE XR 37.5MG CAP.ER.24H PO SCH (07:41)
[2018-01-21] MEDS: GUAIFENESIN ER 600 MG TABLET PO SCH ×2 (07:41→20:18)
[2018-01-21 07:56] LABS: MEAN CORPUSCULAR HGB CONC 32.7 g/dL (32.4-35.8); MEAN CORPUSCULAR VOLUME 91.8 fL (80-100); MEAN PLATELET VOLUME 6.7 fL (7.4-10.4); PLATELET COUNT 355 x10^3/uL (130-400); RED BLOOD COUNT 4.21 x10^6/uL (3.82-5.3); RED CELL DISTRIBUTION WIDTH 12.1 % (9.6-15.2)
[2018-01-21 08:01] VITALS: BP 104/57
[2018-01-21 09:01] LABS: MICROSCOPIC NOT IND
[2018-01-21 09:07] LABS: CULTURE INDICATED? NO
[2018-01-21 09:11] LABS: MD YES
[2018-01-21 09:13] LABS: <PLATELET ESTIMATE> ADEQUATE; <PLT MORPHOLOGY> NORMAL PLT MORPH; <RBC MORPHOLOGY> NORMAL; LYMPH#(MANUAL) 0.67 x10^3/uL (1-3.4); LYMPHS% (MANUAL) 2 % (22-44); MONOS#(MANUAL) 0.67 x10^3/uL (0.3-2.7); MONOS% (MANUAL) 2 % (2-9); SEG#(MANUAL) 32.16 x10^3/uL (1.8-6.8); SEGS% (MANUAL) 96 % (42-75)
[2018-01-21] MEDS: LORazepam 0.5MG TABLET PO PRN ×3 (10:15→20:19)
[2018-01-21 12:47] VITALS: BP 116/67
[2018-01-21] MEDS: CEFTRIAXONE PMX 1GM/50ML 50 ML IV SCH (14:02)
[2018-01-21] MEDS ORDERED: NITROGLYCERIN 0.4 MG BOTTLE (25 TABS) SL PRN (14:30)
[2018-01-21 14:57] LABS: TROPONIN I < 0.015 ng/mL (0.000-0.045)
[2018-01-21 14:59] VITALS: BP 126/63
[2018-01-21] MEDS ORDERED: SODIUM CHLORIDE 0.9%, 500ML IVBOLUS ONE (15:30)
[2018-01-21] MEDS ORDERED: LORazepam 2 MG/ML, 1ML ONE (15:33)
[2018-01-21] MEDS ORDERED: LORazepam 2 MG/ML, 1ML IVPush ONE (16:00)
[2018-01-21 19:12] VITALS: BP 120/68
[2018-01-21] MEDS: NICOTINE 7 MG/24 HR PATCH.TD24 TD SCH (20:19)
[2018-01-21] MEDS: MIRTAZAPINE 15 MG TABLET PO SCH (20:29)
[2018-01-21] MEDS: ENOXAPARIN 40 MG/0.4 ML SQ SCH (21:00)
[2018-01-21] MEDS ORDERED: OMNIPAQUE 350 MG/ML, 100ML BOTTLE ONE (23:21)
[2018-01-22 02:39] LABS: MEAN CORPUSCULAR HEMOGLOBIN 30.2 pg (27.0-34.8); MEAN CORPUSCULAR HGB CONC 32.9 g/dL (32.4-35.8); MEAN CORPUSCULAR VOLUME 91.9 fL (80-100); MEAN PLATELET VOLUME 6.7 fL (7.4-10.4); PLATELET COUNT 310 x10^3/uL (130-400); RED CELL DISTRIBUTION WIDTH 12.8 % (9.6-15.2)
[2018-01-22 02:47] LABS: ANION GAP 6 mmol/L (5-15); CALCIUM 7.9 mg/dL (8.5-10.1); CHLORIDE 109 mmol/L (98-107); CREATININE 0.53 mg/dL (0.55-1.02)
[2018-01-22 02:54] LABS: TROPONIN I < 0.015 ng/mL (0.000-0.045)
[2018-01-22 03:00] LABS: BASOPHILS # (AUTO) 0.01 x10^3/uL (0-0.1); BASOPHILS % (AUTO) 0 % (0-1); EOSINOPHILS % (AUTO) 0 % (1-7); LYMPHOCYTES % (AUTO) 3 % (22-44); MD SCAN; MONOCYTES # (AUTO) 0.95 x10^3/uL (0.2-0.8); MONOCYTES % (AUTO) 3 % (2-9); NEUTROPHILS # (AUTO) 26.88 x10^3/uL (1.8-6.8); NEUTROPHILS % (AUTO) 94 % (42-75)
[2018-01-22] MEDS: ALBUTEROL/IPRATROPIUM 2.5MG/0.5MG, 3 ML NPPB SCH (03:00)
[2018-01-22 03:19] VITALS: BP 121/64
[2018-01-22 07:42] VITALS: BP 134/73
[2018-01-22] MEDS ORDERED: CEFD300C37 PO (08:08)
[2018-01-22] MEDS ORDERED: PRED20TA PO (08:09)
[2018-01-22] MEDS: VENLAFAXINE XR 37.5MG CAP.ER.24H PO SCH (08:11)
[2018-01-22] MEDS: GUAIFENESIN ER 600 MG TABLET PO SCH (08:11)
[2018-01-22] MEDS: methylPREDNISolone SOD SUCC 125 MG/2 ML IVPush SCH (08:11)
[2018-01-22] MEDS: LOSARTAN 25MG TABLET PO SCH (08:12)
[2018-01-22] MEDS: DILTIAZEM CD 180 MG CAP.ER.24H PO SCH (08:12)
[2018-01-22] MEDS: morphine SULFATE 15 MG TAB.IR PO SCH (08:12)
[2018-01-22] MEDS: LORazepam 0.5MG TABLET PO PRN (08:13)
== END 2018-01-22 10:00 | disposition home or self-care (01) | DRG 871 ==
LOC: ED 12:01 → EDIP 13:27 → 3NE 15:07 → 5SO 01-21 14:26 → DCLOUNGE 01-22 09:45
PROVIDERS: ADMIT Internal Medicine; ATTEND Internal Medicine
DX: A41.9 Sepsis, unspecified organism (principal); J96.21 Acute and chronic respiratory failure with hypoxia; J44.1 Chronic obstructive pulmonary disease with (acute) exacerbation; I50.32 Chronic diastolic (congestive) heart failure; D68.69 Other thrombophilia; J44.0 Chronic obstructive pulmonary disease with (acute) lower respiratory infection; I11.0 Hypertensive heart disease with heart failure; I48.0 Paroxysmal atrial fibrillation; F17.200 Nicotine dependence, unspecified, uncomplicated; F31.9 Bipolar disorder, unspecified; F41.0 Panic disorder [episodic paroxysmal anxiety]; G89.29 Other chronic pain; Z99.81 Dependence on supplemental oxygen; M19.90 Unspecified osteoarthritis, unspecified site; F15.11 Other stimulant abuse, in remission
CPT/HCPCS: 36415; 36600; 84145; 87400; 99291; J7620; J7626; 71045; 71275; 80048; 80053; 80307; 81003; 82803; 83605; 83880; 84484; 85025; 85379; 87040; 93005; 94640; 96365; 96375; G0378; J0696; J1650; Q9967; J2060; J2930; J7030; J7040

== ENCOUNTER 2018-02-02 06:15 | Inpatient (IN) | payer MEDICAID, OTHER ==
[~2018-02-02] VITALS: Ht 165.1 cm; Wt 66.8 kg
[~2018-02-02 06:15] MED LIST changes: +CEFD300C37 PO; +FURO40TA6 PO; +MORP15TA PO; +POTA20TA89 PO; +SPIR50TA4 PO
[2018-02-02] MEDS ORDERED: ALBUTEROL/IPRATROPIUM 2.5MG/0.5MG, 3 ML ONE ×2 (06:23)
[2018-02-02] MEDS ORDERED: methylPREDNISolone SOD SUCC 125 MG/2 ML ONE (06:27)
[2018-02-02] MEDS ORDERED: SODIUM CHLORIDE FLUSH 10ML SYR IVF ONE (06:30)
[2018-02-02] MEDS ORDERED: methylPREDNISolone SOD SUCC 125 MG/2 ML IVP ONE (06:30)
[2018-02-02] MEDS: ALBUTEROL/IPRATROPIUM 2.5MG/0.5MG, 3 ML NPPB SCH ×6 (06:44→22:25)
[2018-02-02 06:50] LABS: MEAN CORPUSCULAR HEMOGLOBIN 30.6 pg (27.0-34.8); MEAN CORPUSCULAR HGB CONC 32.7 g/dL (32.4-35.8); MEAN CORPUSCULAR VOLUME 93.6 fL (80-100); MEAN PLATELET VOLUME 7.2 fL (7.4-10.4); PLATELET COUNT 308 x10^3/uL (130-400); RED BLOOD COUNT 4.28 x10^6/uL (3.82-5.3); RED CELL DISTRIBUTION WIDTH 13.2 % (9.6-15.2)
[2018-02-02 06:54] LABS: ALANINE AMINOTRANSFERASE 80 U/L (12-78); ALBUMIN 3.2 g/dL (3.4-5.0); ANION GAP 5 mmol/L (5-15); CALCIUM 7.9 mg/dL (8.5-10.1); CHLORIDE 106 mmol/L (98-107); CREATININE 0.66 mg/dL (0.55-1.02)
[2018-02-02 06:58] LABS: ALKALINE PHOSPHATASE 56 U/L (45-117); BILIRUBIN,TOTAL 0.3 mg/dL (0.2-1.0); TOTAL PROTEIN 6.3 g/dL (6.4-8.2); TROPONIN I < 0.015 ng/mL (0.000-0.045)
[2018-02-02 06:59] LABS: INTERNATIONAL NORMALIZED RATIO 1.01 (0.93-1.1); PROTHROMBIN TIME 10.7 Seconds (9.6-11.5)
[2018-02-02 07:37] LABS: BASOPHILS # (AUTO) 0.05 x10^3/uL (0-0.1); BASOPHILS % (AUTO) 0 % (0-1); EOSINOPHILS # (AUTO) 0.02 x10^3/uL (0-0.4); EOSINOPHILS % (AUTO) 0 % (1-7); LYMPHOCYTES # (AUTO) 1.66 x10^3/uL (1-3.4); LYMPHOCYTES % (AUTO) 8 % (22-44); MD SCAN; MONOCYTES # (AUTO) 1.85 x10^3/uL (0.2-0.8); MONOCYTES % (AUTO) 9 % (2-9); NEUTROPHILS # (AUTO) 16.76 x10^3/uL (1.8-6.8); NEUTROPHILS % (AUTO) 82 % (42-75)
[2018-02-02] MEDS ORDERED: SODIUM CHLORIDE FLUSH 10ML SYR IVF PRN (09:00)
[2018-02-02] MEDS ORDERED: GUAIFENESIN/DM 200-20MG, 10ML UDC PO PRN (10:30)
[2018-02-02] MEDS ORDERED: ACETAMINOPHEN 325 MG TABLET PO PRN (10:30)
[2018-02-02] MEDS ORDERED: ONDANSETRON 2MG/ML, 2ML IVPush PRN (10:30)
[2018-02-02] MEDS: SODIUM CHLORIDE FLUSH 10ML SYR IVF SCH ×2 (10:30→22:39)
[2018-02-02] MEDS ORDERED: DOCUSATE 100 MG CAPSULE PO PRN (10:30)
[2018-02-02 10:36] VITALS: BP 92/58
[2018-02-02] MEDS: BUDESONIDE 0.5 MG/2 ML INHA HHN SCH ×2 (10:50→18:35)
[2018-02-02] MEDS ORDERED: ALBUTEROL SULFATE 2.5 MG/3 ML HHN SCH (11:00)
[2018-02-02 11:29] VITALS: BP 134/70
[2018-02-02] MEDS: methylPREDNISolone SOD SUCC 40 MG/ML IVPush SCH ×3 (12:26→22:36)
[2018-02-02] MEDS: LORazepam 1MG TABLET PO PRN ×2 (12:26→22:36)
[2018-02-02] MEDS: NICOTINE 14MG/24 HR PATCH.TD24 TD SCH (12:27)
[2018-02-02] MEDS: ENOXAPARIN 40 MG/0.4 ML SQ SCH ×2 (12:27→12:32)
[2018-02-02] MEDS: AZITHROMYCIN 500 MG TABLET PO SCH (12:40)
[2018-02-02 13:11] VITALS: BP 128/66
[2018-02-02 19:58] VITALS: BP 123/62
[2018-02-03] MEDS: ALBUTEROL/IPRATROPIUM 2.5MG/0.5MG, 3 ML NPPB SCH ×6 (02:24→22:27)
[2018-02-03] MEDS: methylPREDNISolone SOD SUCC 40 MG/ML IVPush SCH ×3 (04:04→16:40)
[2018-02-03 04:11] VITALS: BP 107/67
[2018-02-03 05:22] LABS: ALBUMIN 3.1 g/dL (3.4-5.0); ANION GAP 7 mmol/L (5-15); CALCIUM 8.5 mg/dL (8.5-10.1); CHLORIDE 105 mmol/L (98-107)
[2018-02-03 05:25] LABS: ALANINE AMINOTRANSFERASE 74 U/L (12-78); ALKALINE PHOSPHATASE 52 U/L (45-117); BILIRUBIN,TOTAL 0.6 mg/dL (0.2-1.0); CREATININE 0.59 mg/dL (0.55-1.02)
[2018-02-03] MEDS: BUDESONIDE 0.5 MG/2 ML INHA HHN SCH ×2 (06:50→18:43)
[2018-02-03 07:22] VITALS: BP 103/62
[2018-02-03] MEDS: NICOTINE 14MG/24 HR PATCH.TD24 TD SCH (07:54)
[2018-02-03] MEDS: AZITHROMYCIN 500 MG TABLET PO SCH (07:55)
[2018-02-03] MEDS: SODIUM CHLORIDE FLUSH 10ML SYR IVF SCH ×2 (07:55→20:26)
[2018-02-03] MEDS: LORazepam 1MG TABLET PO PRN ×2 (07:55→14:34)
[2018-02-03 13:38] VITALS: BP 104/65
[2018-02-03 20:31] VITALS: BP 138/68
[2018-02-04] MEDS: LORazepam 1MG TABLET PO PRN ×4 (01:34→13:35)
[2018-02-04 01:39] VITALS: BP 111/64
[2018-02-04] MEDS: ALBUTEROL/IPRATROPIUM 2.5MG/0.5MG, 3 ML NPPB SCH ×6 (02:50→23:15)
[2018-02-04 05:39] LABS: MEAN CORPUSCULAR HEMOGLOBIN 30.4 pg (27.0-34.8); MEAN CORPUSCULAR HGB CONC 32.8 g/dL (32.4-35.8); MEAN CORPUSCULAR VOLUME 92.8 fL (80-100); MEAN PLATELET VOLUME 6.8 fL (7.4-10.4); PLATELET COUNT 327 x10^3/uL (130-400); RED BLOOD COUNT 4.23 x10^6/uL (3.82-5.3); RED CELL DISTRIBUTION WIDTH 13.8 % (9.6-15.2)
[2018-02-04 06:16] LABS: MD YES
[2018-02-04 06:24] LABS: <PLATELET ESTIMATE> ADEQUATE; <PLT MORPHOLOGY> NORMAL PLT MORPH; <RBC MORPHOLOGY> NORMAL; LYMPH#(MANUAL) 0.55 x10^3/uL (1-3.4); LYMPHS% (MANUAL) 2 % (22-44); SEG#(MANUAL) 26.75 x10^3/uL (1.8-6.8); SEGS% (MANUAL) 98 % (42-75)
[2018-02-04 06:58] VITALS: BP 131/78
[2018-02-04] MEDS: BUDESONIDE 0.5 MG/2 ML INHA HHN SCH ×2 (07:36→19:10)
[2018-02-04] MEDS: predniSONE 50MG TABLET PO SCH (08:00)
[2018-02-04] MEDS: AZITHROMYCIN 500 MG TABLET PO SCH (09:59)
[2018-02-04] MEDS: DILTIAZEM CD 180 MG CAP.ER.24H PO SCH (09:59)
[2018-02-04] MEDS: VENLAFAXINE XR 37.5MG CAP.ER.24H PO SCH (09:59)
[2018-02-04] MEDS: FUROSEMIDE 40 MG TABLET PO SCH (10:00)
[2018-02-04] MEDS: SPIRONOLACTONE 50 MG TABLET PO SCH (10:00)
[2018-02-04] MEDS: ENOXAPARIN 40 MG/0.4 ML SQ SCH ×2 (10:01→10:06)
[2018-02-04] MEDS: NICOTINE 14MG/24 HR PATCH.TD24 TD SCH (10:01)
[2018-02-04] MEDS: SODIUM CHLORIDE FLUSH 10ML SYR IVF SCH ×2 (10:01→20:11)
[2018-02-04 15:00] VITALS: BP 106/64
[2018-02-04] MEDS: morphine SULFATE 15 MG TAB.IR PO SCH ×2 (15:00→15:59)
[2018-02-04 19:58] VITALS: BP 119/73
[2018-02-04] MEDS ORDERED: morphine SULFATE 15 MG TAB.IR PO SCH (21:00)
[2018-02-05] MEDS: ALBUTEROL/IPRATROPIUM 2.5MG/0.5MG, 3 ML NPPB SCH ×3 (02:31→10:50)
[2018-02-05 02:34] VITALS: BP 127/71
[2018-02-05 05:35] LABS: MEAN CORPUSCULAR HGB CONC 32.9 g/dL (32.4-35.8); MEAN CORPUSCULAR VOLUME 94.1 fL (80-100); MEAN PLATELET VOLUME 6.8 fL (7.4-10.4); PLATELET COUNT 296 x10^3/uL (130-400); RED BLOOD COUNT 4.21 x10^6/uL (3.82-5.3); RED CELL DISTRIBUTION WIDTH 13.6 % (9.6-15.2)
[2018-02-05 06:02] LABS: BASOPHILS # (AUTO) 0.15 x10^3/uL (0-0.1); BASOPHILS % (AUTO) 1 % (0-1); EOSINOPHILS # (AUTO) 0.08 x10^3/uL (0-0.4); EOSINOPHILS % (AUTO) 1 % (1-7); LYMPHOCYTES % (AUTO) 15 % (22-44); MD SCAN; MONOCYTES # (AUTO) 1.61 x10^3/uL (0.2-0.8); MONOCYTES % (AUTO) 10 % (2-9); NEUTROPHILS # (AUTO) 12.19 x10^3/uL (1.8-6.8); NEUTROPHILS % (AUTO) 74 % (42-75)
[2018-02-05 07:00] VITALS: BP 96/56
[2018-02-05] MEDS: BUDESONIDE 0.5 MG/2 ML INHA HHN SCH (07:10)
[2018-02-05] MEDS: SPIRONOLACTONE 50 MG TABLET PO SCH (07:57)
[2018-02-05] MEDS: NICOTINE 14MG/24 HR PATCH.TD24 TD SCH (07:57)
[2018-02-05] MEDS: morphine SULFATE 15 MG TAB.IR PO SCH (07:58)
[2018-02-05] MEDS: FUROSEMIDE 40 MG TABLET PO SCH (07:58)
[2018-02-05] MEDS: VENLAFAXINE XR 37.5MG CAP.ER.24H PO SCH (07:58)
[2018-02-05] MEDS: AZITHROMYCIN 500 MG TABLET PO SCH (07:58)
[2018-02-05] MEDS: predniSONE 50MG TABLET PO SCH (07:58)
[2018-02-05] MEDS: DILTIAZEM CD 180 MG CAP.ER.24H PO SCH (07:58)
[2018-02-05] MEDS: SODIUM CHLORIDE FLUSH 10ML SYR IVF SCH (07:59)
[2018-02-05] MEDS ORDERED: PRED20TA PO (10:36)
[2018-02-05] MEDS: LORazepam 1MG TABLET PO PRN (11:39)
== END 2018-02-05 13:57 | disposition home or self-care (01) | DRG 189 ==
LOC: ED 06:34 → EDIP 09:18 → 3NE 09:50 → 5SO 11:31
PROVIDERS: ADMIT Hospitalist; ATTEND Hospitalist
DX: J96.21 Acute and chronic respiratory failure with hypoxia (principal); J44.1 Chronic obstructive pulmonary disease with (acute) exacerbation; D68.59 Other primary thrombophilia; I50.32 Chronic diastolic (congestive) heart failure; I47.1 Supraventricular tachycardia; F17.210 Nicotine dependence, cigarettes, uncomplicated; I11.0 Hypertensive heart disease with heart failure; M19.90 Unspecified osteoarthritis, unspecified site; Z66 Do not resuscitate; F41.8 Other specified anxiety disorders; I48.0 Paroxysmal atrial fibrillation; T38.0X5A Adverse effect of glucocorticoids and synthetic analogues, initial encounter; Y92.89 Other specified places as the place of occurrence of the external cause; D46.9 Myelodysplastic syndrome, unspecified; Z79.01 Long term (current) use of anticoagulants; Z99.81 Dependence on supplemental oxygen; Z88.1 Allergy status to other antibiotic agents; Z98.51 Tubal ligation status
CPT/HCPCS: 36415; 99285; J7620; J7626; 71045; 80053; 83605; 83735; 83880; 84443; 84484; 85025; 85610; 85730; 93005; 94640; 96374; G0378; J1650; J2920; J2930; J7512

== ENCOUNTER 2018-02-17 13:46 | Inpatient (IN) | payer MEDICAID, OTHER ==
[~2018-02-17] VITALS: Ht 165.1 cm; Wt 71.9 kg
[2018-02-17] MEDS ORDERED: SODIUM CHLORIDE 0.9% 1,000 ML IV ONE (13:55)
[2018-02-17] MEDS ORDERED: ALBUTEROL/IPRATROPIUM 2.5MG/0.5MG, 3 ML NPPB SCH (14:00)
[2018-02-17] MEDS ORDERED: ALBUTEROL/IPRATROPIUM 2.5MG/0.5MG, 3 ML ONE (14:13)
[2018-02-17 14:23] LABS: BASOPHILS # (AUTO) 0.07 x10^3/uL (0-0.1); BASOPHILS % (AUTO) 1 % (0-1); EOSINOPHILS # (AUTO) 0.25 x10^3/uL (0-0.4); EOSINOPHILS % (AUTO) 2 % (1-7); LYMPHOCYTES # (AUTO) 2.06 x10^3/uL (1-3.4); LYMPHOCYTES % (AUTO) 19 % (22-44); MD NO; MEAN CORPUSCULAR HEMOGLOBIN 30.5 pg (27.0-34.8); MEAN CORPUSCULAR VOLUME 92.4 fL (80-100); MEAN PLATELET VOLUME 6.1 fL (7.4-10.4); MONOCYTES # (AUTO) 1.07 x10^3/uL (0.2-0.8); MONOCYTES % (AUTO) 10 % (2-9); NEUTROPHILS # (AUTO) 7.19 x10^3/uL (1.8-6.8); NEUTROPHILS % (AUTO) 68 % (42-75); PLATELET COUNT 267 x10^3/uL (130-400); RED BLOOD COUNT 4.51 x10^6/uL (3.82-5.3); RED CELL DISTRIBUTION WIDTH 12.9 % (9.6-15.2)
[2018-02-17 14:32] LABS: ALBUMIN 3.6 g/dL (3.4-5.0); ANION GAP 6 mmol/L (5-15); CALCIUM 8.5 mg/dL (8.5-10.1); CHLORIDE 101 mmol/L (98-107); CREATININE 0.64 mg/dL (0.55-1.02)
[2018-02-17 14:36] LABS: TROPONIN I < 0.015 ng/mL (0.000-0.045)
[2018-02-17] MEDS ORDERED: OMNIPAQUE 350 MG/ML, 100ML BOTTLE ONE (16:02)
[2018-02-17] MEDS ORDERED: LORazepam 2 MG/ML, 1ML IVPush ONE (16:30)
[2018-02-17 17:14] LABS: AMPHETAMINE SCREEN, URINE Negative (Negative); BARBITURATE SCREEN, URINE Negative (Negative); BENZODIAZEPINE SCREEN, URINE Negative (Negative); CANNABINOID SCREEN, URINE Negative (Negative); COCAINE SCREEN, URINE Negative (Negative); METHADONE SCREEN, URINE Negative (Negative); OPIATE SCREEN, URINE Positive (Negative)
[2018-02-17] MEDS ORDERED: BISACODYL 10 MG SUPP PR PRN (18:00)
[2018-02-17] MEDS ORDERED: ENALAPRILAT 1.25 MG/ML, 2ML IVPush PRN (18:00)
[2018-02-17] MEDS ORDERED: GUAIFENESIN/DM 200-20MG, 10ML UDC PO PRN (18:00)
[2018-02-17] MEDS ORDERED: ZOLPIDEM 5MG TABLET PO PRN (18:00)
[2018-02-17] MEDS ORDERED: POLYETHYLENE GLYCOL 17 GM PACKET PO PRN (18:00)
[2018-02-17] MEDS ORDERED: DOCUSATE 100 MG CAPSULE PO PRN (18:00)
[2018-02-17] MEDS ORDERED: ACETAMINOPHEN 325 MG TABLET PO PRN (18:00)
[2018-02-17] MEDS ORDERED: LORazepam 0.5MG TABLET PO SCH (18:00)
[2018-02-17] MEDS: ENOXAPARIN 40 MG/0.4 ML SQ SCH (18:00)
[2018-02-17] MEDS ORDERED: ONDANSETRON ODT 4 MG PO PRN (18:00)
[2018-02-17] MEDS ORDERED: ONDANSETRON 2MG/ML, 2ML IVPush PRN (18:00)
[2018-02-17 18:19] LABS: FREE T4 (FREE THYROXINE) 1.23 ng/dL (0.76-1.46); TROPONIN I < 0.015 ng/mL (0.000-0.045)
[2018-02-17 18:25] LABS: THYROID STIMULATING HORMONE 0.669 mIU/L (0.358-3.740)
[2018-02-17 19:15] VITALS: BP 113/67
[2018-02-17] MEDS: NICOTINE 21 MG/24 HR PATCH.TD24 TD SCH (20:44)
[2018-02-17] MEDS: MIRTAZAPINE 15 MG TABLET PO SCH (20:44)
[2018-02-17] MEDS: FAMOTIDINE 20 MG TABLET PO SCH (20:44)
[2018-02-17] MEDS: morphine SULFATE 15 MG TAB.IR PO SCH (20:45)
[2018-02-17 20:59] VITALS: BP 107/63
[2018-02-17 21:00] VITALS: BP 129/52
[2018-02-17] MEDS: Budesonide/Formoterol Fumarate (Symbicort 160-4.5 Mcg Inhaler INH SCH (21:00)
[2018-02-17] MEDS: BUDESONIDE 0.5 MG/2 ML INHA NPPB SCH (21:00)
[2018-02-17 21:01] VITALS: BP 87/50
[2018-02-17 23:54] LABS: TROPONIN I < 0.015 ng/mL (0.000-0.045)
[2018-02-18] VITALS (12 sets, daily range): BP systolic 87–111; BP diastolic 51–67
[2018-02-18] MEDS: ALBUTEROL/IPRATROPIUM 2.5MG/0.5MG, 3 ML NPPB SCH ×3 (05:12→20:12)
[2018-02-18 05:23] LABS: MICROSCOPIC NOT IND
[2018-02-18 05:28] LABS: CULTURE INDICATED? NO
[2018-02-18 05:33] LABS: BASOPHILS # (AUTO) 0.06 x10^3/uL (0-0.1); BASOPHILS % (AUTO) 1 % (0-1); EOSINOPHILS # (AUTO) 0.31 x10^3/uL (0-0.4); EOSINOPHILS % (AUTO) 3 % (1-7); LYMPHOCYTES # (AUTO) 2.77 x10^3/uL (1-3.4); LYMPHOCYTES % (AUTO) 30 % (22-44); MD NO; MEAN CORPUSCULAR HEMOGLOBIN 30.7 pg (27.0-34.8); MEAN CORPUSCULAR HGB CONC 32.7 g/dL (32.4-35.8); MEAN CORPUSCULAR VOLUME 93.8 fL (80-100); MEAN PLATELET VOLUME 6.4 fL (7.4-10.4); MONOCYTES # (AUTO) 1.35 x10^3/uL (0.2-0.8); MONOCYTES % (AUTO) 15 % (2-9); NEUTROPHILS # (AUTO) 4.75 x10^3/uL (1.8-6.8); NEUTROPHILS % (AUTO) 52 % (42-75); PLATELET COUNT 241 x10^3/uL (130-400); RED BLOOD COUNT 4.43 x10^6/uL (3.82-5.3); RED CELL DISTRIBUTION WIDTH 13.3 % (9.6-15.2)
[2018-02-18 05:43] LABS: ANION GAP 4 mmol/L (5-15); CALCIUM 8.2 mg/dL (8.5-10.1); CHLORIDE 105 mmol/L (98-107)
[2018-02-18 05:48] LABS: CHOL/HDL RATIO 1.9; CHOLESTEROL, TOTAL 109 mg/dL (140-239); CREATININE 0.69 mg/dL (0.55-1.02); HDL CHOL % 53 % (28-40); HDL CHOLESTEROL (DIRECT) 58 mg/dL (40-60); LDL CHOLESTEROL,CALCULATED 40 mg/dL (54-169); LDL/HDL RATIO 0.7 (0.5-3.0); TRIGLYCERIDES 57 mg/dL (50-200); VLDL CHOLESTEROL 11 mg/dL (0-25)
[2018-02-18] MEDS ORDERED: ALBUTEROL/IPRATROPIUM 2.5MG/0.5MG, 3 ML NPPB SCH (07:00)
[2018-02-18] MEDS: POTASSIUM CHLORIDE 20 MEQ TAB.ER.PRT PO SCH (07:52)
[2018-02-18] MEDS: morphine SULFATE 15 MG TAB.IR PO SCH ×2 (07:52→19:59)
[2018-02-18] MEDS: DILTIAZEM CD 180 MG CAP.ER.24H PO SCH (07:52)
[2018-02-18] MEDS: VENLAFAXINE XR 37.5MG CAP.ER.24H PO SCH (07:52)
[2018-02-18] MEDS: FAMOTIDINE 20 MG TABLET PO SCH ×2 (07:52→19:59)
[2018-02-18] MEDS: LOSARTAN 25MG TABLET PO SCH (07:53)
[2018-02-18] MEDS: SPIRONOLACTONE 50 MG TABLET PO SCH (07:53)
[2018-02-18] MEDS: FUROSEMIDE 40 MG TABLET PO SCH (07:53)
[2018-02-18] MEDS: Tiotropium Bromide** (Spiriva**) 18 MCG) INH SCH (09:00)
[2018-02-18] MEDS: BUDESONIDE 0.5 MG/2 ML INHA NPPB SCH ×2 (09:00→20:12)
[2018-02-18] MEDS: Budesonide/Formoterol Fumarate (Symbicort 160-4.5 Mcg Inhaler INH SCH ×2 (09:00→19:55)
[2018-02-18] MEDS: NICOTINE 21 MG/24 HR PATCH.TD24 TD SCH (17:07)
[2018-02-18] MEDS: ENOXAPARIN 40 MG/0.4 ML SQ SCH (17:07)
[2018-02-18] MEDS: MIRTAZAPINE 15 MG TABLET PO SCH (19:59)
[2018-02-19 02:25] VITALS: BP 99/60
[2018-02-19 02:27] VITALS: BP 114/63
[2018-02-19 02:29] VITALS: BP 98/59
[2018-02-19] MEDS: ALBUTEROL/IPRATROPIUM 2.5MG/0.5MG, 3 ML NPPB SCH ×2 (03:00→05:36)
[2018-02-19 06:45] VITALS: BP 110/67
[2018-02-19 06:48] VITALS: BP 92/57
[2018-02-19 06:52] VITALS: BP 98/57
[2018-02-19] MEDS: Budesonide/Formoterol Fumarate (Symbicort 160-4.5 Mcg Inhaler INH SCH (07:42)
[2018-02-19] MEDS: Tiotropium Bromide** (Spiriva**) 18 MCG) INH SCH (07:43)
[2018-02-19] MEDS: morphine SULFATE 15 MG TAB.IR PO SCH ×2 (07:54→07:58)
[2018-02-19] MEDS: FAMOTIDINE 20 MG TABLET PO SCH (07:54)
[2018-02-19] MEDS: LOSARTAN 25MG TABLET PO SCH (07:54)
[2018-02-19] MEDS: POTASSIUM CHLORIDE 20 MEQ TAB.ER.PRT PO SCH (07:54)
[2018-02-19] MEDS: DILTIAZEM CD 180 MG CAP.ER.24H PO SCH (07:55)
[2018-02-19] MEDS: VENLAFAXINE XR 37.5MG CAP.ER.24H PO SCH (07:55)
[2018-02-19] MEDS: SPIRONOLACTONE 50 MG TABLET PO SCH (07:55)
[2018-02-19] MEDS: FUROSEMIDE 40 MG TABLET PO SCH (07:55)
== END 2018-02-19 13:00 | disposition home or self-care (01) | DRG 73 ==
LOC: ED 16:06 → OBSVTOIN 16:24 → EDIP 16:24 → INTOOBSV 16:24 → 4WST 18:09
PROVIDERS: ADMIT Internal Medicine; ATTEND Internal Medicine
DX: G90.9 Disorder of the autonomic nervous system, unspecified (principal); R65.11 Systemic inflammatory response syndrome (SIRS) of non-infectious origin with acute organ dysfunction; I50.32 Chronic diastolic (congestive) heart failure; J44.1 Chronic obstructive pulmonary disease with (acute) exacerbation; E86.9 Volume depletion, unspecified; F17.200 Nicotine dependence, unspecified, uncomplicated; F31.9 Bipolar disorder, unspecified; I11.0 Hypertensive heart disease with heart failure; I48.0 Paroxysmal atrial fibrillation; G89.29 Other chronic pain; M54.9 Dorsalgia, unspecified; M19.90 Unspecified osteoarthritis, unspecified site; R00.0 Tachycardia, unspecified; Z82.49 Family history of ischemic heart disease and other diseases of the circulatory system; Z86.72 Personal history of thrombophlebitis; Z98.51 Tubal ligation status; Z88.1 Allergy status to other antibiotic agents
CPT/HCPCS: 36415; 99285; J7620; J7626; 70450; 71045; 71275; 80048; 80061; 80307; 81003; 82040; 82140; 83880; 84439; 84443; 84484; 85025; 85379; 93005; 93306; 93880; 94640; G0378; Q9967; J7030